=== PATIENT | female | born 1935 | race American Indian/Alaskan Native ===

== ENCOUNTER 2021-06-08 11:47 | Emergency (ER) | payer OTHER ==
[~2021-06-08] VITALS: Ht 160 cm; Wt 82.3 kg
[2021-06-08 11:57] VITALS: BP 143/51
--- NOTE | 2021-06-08 12:05 | NUR ---
PT AMB TO BED 9.
--- NOTE | 2021-06-08 12:20 | NUR ---
MD STARR AT PT BEDSIDE FOR FURTHER-EVALUATION.
--- NOTE | 2021-06-08 12:40 | NUR ---
US at pt beside.
--- NOTE | 2021-06-08 13:08 | NUR ---
LAB AT PATIENT BEDSIDE.
[2021-06-08 13:34] LABS: BASOPHILS # (AUTO) 0.1 K/uL (0.00-0.22); BASOPHILS % (AUTO) 0.8 % (0.0-2.0); EOSINOPHILS # (AUTO) 0.2 K/uL (0-0.4); EOSINOPHILS % (AUTO) 1.8 % (0.0-4.0); HEMATOCRIT 39.4 % (36-48); HEMOGLOBIN 13.3 g/dL (12.0-16.0); LYMPHOCYTES % (AUTO) 20.2 % (20.5-51.1); MEAN CORPUSCULAR HEMOGLOBIN 31 pg (27-31); MEAN CORPUSCULAR HGB CONC 34 g/dL (33-37); MEAN CORPUSCULAR VOLUME 91.5 fL (80-94); MONOCYTES # (AUTO) 0.8 K/uL (0.8-1.0); MONOCYTES % (AUTO) 7.5 % (1.7-9.3); NEUTROPHILS % (AUTO) 69.7 % (42.2-75.2); PLATELET COUNT (AUTO) 184 K/uL (140-450); RED BLOOD CELL COUNT(AUTO) 4.31 MIL/uL (4.20-5.40); RED CELL DISTRIBUTION WIDTH 13.9 % (11.6-13.7); WHITE BLOOD COUNT (AUTO) 10.1 K/uL (4.8-10.8)
[2021-06-08] MEDS ORDERED: ACET-10509 PO (13:49)
--- NOTE | 2021-06-08 14:04 | NUR ---
MD STARR MADE AWARE OF PT BLOOD PRESSURE.
--- NOTE | 2021-06-08 14:04 | NUR ---
MD STARR AT PT BEDSIDE FOR RE-EVALUATION.
[2021-06-08 14:33] VITALS: BP 190/74
[2021-06-08 14:38] LABS: ANION GAP 10.6 (8-16); CHLORIDE 104 mmol/L (98-107); GLUCOSE 74 mg/dL (74-106); POTASSIUM 3.6 mmol/L (3.5-5.1); SODIUM SERUM 142 mmol/L (136-145); UREA NITROGEN, BLOOD 23 mg/dL (7-18)
== END 2021-06-08 14:30 | disposition home or self-care (01) ==
LOC: MED 11:47
DX: M71.22 Synovial cyst of popliteal space [Baker], left knee (principal)
CPT/HCPCS: 36415; 80048; 85025; 93971; 99284; Q0092